=== PATIENT | male | born 1935 | race Caucasian/White ===

== ENCOUNTER → 2016-08-16 | Day surgery (SDC) | payer MEDICARE, OTHER ==
[~2016-08-16] MED LIST: ACAI500C PO; AMLO2.5T PO; ASPI-110 PO; ASPI1TAB69 PO; ASPI81TA82 PO; BUPIVACAINE HCL PF 0.5% 30 ML VIAL ONE; CALTCHW5 PO; CALTTAB PO; CALTTAB2 PO; CENTTAB11 PO; CENTTAB9 PO; COCO1000 PO; DICL1GEL TOPICAL; DICL1GEL7 TOPICAL; DYAZ37.57 PO; FLAX100013 PO; FOLI1 PO; FOLI1TAB4 PO; FOLI400T PO; MAGN200T PO; MAGN400T2 PO; METH2.5T PO; MULT-6 PO; OMPR20CCR PO; OSTETAB4 PO; POTA10CA PO; PRAV10 PO; PRAV40TA2 PO; PRED1 PO; PRIL20CA9 PO; PRIL20TA2 PO; PROPOFOL 200 MG/20 ML AMP IV ONE; TORS20TA PO; TRAM-388 PO; TRAM50TA PO; TRIA37.5 PO; TRIAMCINOLONE ACETONIDE 40 MG/ML VIAL I-ARTICULR ONE; TURM500C3 P-ARTICULR; TURMCAP PO; TYLE325T PO; VOLT1GEL4 TOPICAL; methylPREDNISolone ACETATE 40 MG/ML VIAL I-ARTICULR ONE
--- NOTE | 2016-08-19 10:13 | M6 ---
cc: MARCY THURSTON M.D. DATE: 08/16/2016 DATE OF : 1935 PROCEDURE Fluoroscopically guided injection bilateral sacroiliac joints. History and physical was completed and signed. Consent was signed. Procedure site was marked. Medications were listed and reconciled. Pain score was recorded. Allergies were noted. Time out was taken. Fluoroscopy time was recorded where applicable. Sedation was administered or directed by Dr. Thurston. The patient was given oxygen. The patient was monitored by a registered nurse. Total procedure time was greater than 15 minutes. IV was started, blood pressure cuff, pulse oximeter and EKG were applied. The patient was placed in the prone position on a Khurram table sedated with small amounts of propofol titrated to effect. Vital signs were monitored and remained stable throughout the procedure. Sacral area was prepped with alcohol and 10% Betadine solution and draped with sterile drapes. Fluoroscopy was used shooting from medial to lateral to clearly visualize the posterior joint line of the bilateral sacroiliac joints. Separate sterile 5-inch 22-gauge spinal needles were advanced into these joints under fluoroscopic guidance. There was negative aspiration for blood or any other type of fluid and at each location the patient was given 2 mL of 1/2% of Marcaine 20 mg of Depo-Medrol and 20 mg of Kenalog. Following the procedure the patient was taken to the recovery room with stable vital signs neurologically intact. He will be evaluated immediately and with followup to determine if he has a subjective decrease in his usual pain and a corresponding objective increase his functional capabilities. W. MD JOHN Anthony/shavonne /9:57 AM /10:10 AM
== END | disposition home or self-care (01) ==
LOC: PHSDC 08:14
PROVIDERS: ATTEND Pain Medicine Interventional Pain Medicine
DX: M54.5 Low back pain (principal)
CPT/HCPCS: 99152; G0260; J1030; J3301; 27096

== ENCOUNTER → 2017-05-21 | Outpatient (CLI) | payer MEDICARE, OTHER ==
[~2017-05-21] MED LIST changes: -ACAI500C PO; -ASPI-110 PO; +ASPI1TAB57 PO; -ASPI1TAB69 PO; -ASPI81TA82 PO; -BUPIVACAINE HCL PF 0.5% 30 ML VIAL ONE; -CALTTAB PO; -CALTTAB2 PO; -CENTTAB9 PO; -DICL1GEL TOPICAL; -DICL1GEL7 TOPICAL; -DYAZ37.57 PO; -FLAX100013 PO; -FOLI1 PO; -FOLI1TAB4 PO; -MAGN200T PO; -MAGN400T2 PO; -MULT-6 PO; +NORC5TAB PO; -OMPR20CCR PO; -OSTETAB4 PO; -POTA10CA PO; -PRAV10 PO; -PRIL20CA9 PO; -PROPOFOL 200 MG/20 ML AMP IV ONE; -TORS20TA PO; -TRAM-388 PO; -TRIA37.5 PO; -TRIAMCINOLONE ACETONIDE 40 MG/ML VIAL I-ARTICULR ONE; -TURMCAP PO; +VOLT1GEL16 TOPICAL; -VOLT1GEL4 TOPICAL; -methylPREDNISolone ACETATE 40 MG/ML VIAL I-ARTICULR ONE
[2017-05-21 14:16] LABS: AUTOMATED NEUTROPHIL # 3.1 TH/MM3 (1.8-7.7); BASOPHIL % 0.9 % (0.0-2.0); EOSINOPHIL % 0.8 % (0.0-4.0); HEMATOCRIT 37.8 % (39.0-51.0); LYMPHOCYTE # 0.9 TH/MM3 (1.0-4.8); MEAN CELL VOLUME 93.6 FL (80.0-100.0); MEAN CORPUSCULAR HEMOGLOBIN 32.2 PG (27.0-34.0); MEAN CORPUSCULAR HGB CONC 34.4 % (32.0-36.0); MEAN PLATELET VOLUME 7.4 FL (7.0-11.0); MONO % 11.5 % (0.0-8.0); MONOCYTE # 0.5 TH/MM3 (0-0.9); NEUT % 66.8 % (16.0-70.0); PLATELET COUNT 161 TH/MM3 (150-450); RED BLOOD COUNT 4.03 MIL/MM3 (4.50-5.90); WHITE BLOOD COUNT 4.5 TH/MM3 (4.0-11.0)
--- NOTE | 2017-05-22 18:32 | EKG ---
Date Performed: 05/21/2017 Time Performed: 14:01:20 PTAGE: 81 years EKG: SINUS BRADYCARDIA BORDERLINE ECG NO PREVIOUS TRACING DOCTOR: Christopher Lee Interpretating Date/Time 05/22/2017 18:29:18
== END ==
LOC: PHPRE 12:55
PROVIDERS: ATTEND Pain Medicine Interventional Pain Medicine
DX: Z01.810 Encounter for preprocedural cardiovascular examination (principal); Z01.812 Encounter for preprocedural laboratory examination; M54.5 Low back pain; R94.31 Abnormal electrocardiogram [ECG] [EKG]
CPT/HCPCS: 36415; 85025; 93005

== ENCOUNTER → 2017-05-28 | Day surgery (SDC) | payer MEDICARE, OTHER ==
[~2017-05-28] VITALS: Ht 182.9 cm; Wt 75.0 kg
[~2017-05-28] MED LIST changes: +*MEPERIDINE 25 MG INJ VIAL PERIprocedural Use ONLY ONE; +ACETAMINOPHEN/HYDROcodone 325 MG/5 MG TAB ONE; +BUPIVACAINE HCL PF 0.5% 30 ML VIAL ONE; +BUPIVACAINE/EPINEPHRINE 0.25% 50 ML VIAL ONE; +CHLORHEXIDINE GLUCONATE 2 % 1 PACK (2 CLOTHS) TOPICAL PRN; +IRR ONE; +LACTATED RINGER'S 1000 ML IV PRN; +LIDOCAINE HCL 1% 20 ML VIAL ONE; +LIDOCAINE HCL 1% PF 5 ML SYRINGE OTHER ONE; +METOPROLOL TARTRATE 25 MG TAB PO PRN; +POVIDONE IODINE 5% (ANTISEPSIS KIT) 4 APPLICATIONS EACH NARE PRN; +PROPOFOL 200 MG/20 ML AMP IV ONE; +SODIUM CHLORID 0.9% 500 ML IV PRN; +SODIUM CHLORIDE 0.9% 20 ML VIAL ONE; +SODIUM CHLORIDE 0.9% ONE; +ceFAZolin 1,000 MG/NS 100 ML IV SCH
[2017-05-28 12:54] VITALS: TEMP 97.4
[2017-05-28 14:22] VITALS: BP 158/87; PULSE 50; RESP 16; O2SAT 100
--- NOTE | 2017-05-29 20:36 | MP ---
cc: MARCY SANFORD M.D. Corrected: 05/30/2017 DATE: 05/28/2017 Date of 1935 PROCEDURE Implantation of [employer]tron[employer] quad electrodes x2 for cluneal nerve stimulation. PREPROCEDURE DIAGNOSIS Failed back syndrome with intractable pain. POSTPROCEDURE DIAGNOSIS Failed back syndrome with intractable pain. PROCEDURE NOTE IV was started in the holding area. The patient was given IV antibiotics. He signed his consent form. Surgical site was marked. The patient was taken to the operating room, placed in the prone position. All pressure points were checked and padded and the patient was sedated by anesthesia. Then his lumbar area was prepped with Chloraprep and draped with sterile drapes. The skin in the midline and the lumbar area was infiltrated with 0.25% Marcaine containing epinephrine and then an area in the left flank was also infiltrated. A lumbar incision was made. Hemostasis was obtained with a Bovie. A tunneling device was used to tunnel right and then left Medtronics quad electrode over the cluneal nerves. Then these leads were anchored using 2-0 Ethibond suture, circumferentially tied around an anchoring device. Then an incision was made in the left flank and a subcutaneous pocket was created. The stimulating leads were tunneled to the subcutaneous pocket and the left flank and connected to a distal extension wire by tightening Jean screws. Impedance was checked at the bedside and found to be appropriate in all electrodes and then the connection was covered with a Silastic cover secured at both ends with 2-0 Ethilon suture. Then the redundant wires were coiled in the subcutaneous pocket in the left flank and a final tunnel was made to pass the distal extension lead further laterally in the left flank. Then the lumbar incision and the left flank incision were irrigated with Betadine. Closure took place with 3-0 Monocryl in the subcuticular tissue and 3-0 nylon on the skin. Incisions were covered with sterile adhesive dressings and the patient was taken to the recovery room with stable vital signs neurologically intact. W. MD JOHN Anthony/SKY /12:49 PM /8:20 PM [facility]
== END | disposition home or self-care (01) ==
LOC: PHSDC 09:21
PROVIDERS: ATTEND Pain Medicine Interventional Pain Medicine
DX: M96.1 Postlaminectomy syndrome, not elsewhere classified (principal); M54.5 Low back pain; I10 Essential (primary) hypertension; Z98.1 Arthrodesis status
CPT/HCPCS: 00300; 63650; C1778; J0690; J2175; J7120

== ENCOUNTER → 2017-06-07 | Day surgery (SDC) | payer MEDICARE, OTHER ==
[~2017-06-07] VITALS: Ht 182.9 cm; Wt 74.5 kg
[~2017-06-07] MED LIST changes: -ACETAMINOPHEN/HYDROcodone 325 MG/5 MG TAB ONE; -BUPIVACAINE HCL PF 0.5% 30 ML VIAL ONE; +INSULIN HUMAN REGULAR 1,000 UNITS/10 ML VIAL SQ PRN; -IRR ONE; -LIDOCAINE HCL 1% 20 ML VIAL ONE; +PROPOFOL 200 MG/20 ML AMP ONE; -SODIUM CHLORIDE 0.9% 20 ML VIAL ONE; -SODIUM CHLORIDE 0.9% ONE; +VANCOMYCIN 500 MG/NS 100 ML IV SCH; +ePHEDrine/NS 25 MG/5 ML SYRINGE IV ONE
[2017-06-07 12:52] VITALS: TEMP 97.4
--- NOTE | 2017-06-07 13:26 | MP ---
cc: Alejo Thurston MD Corrected: 06/11/2017 06/07/2017 OPERATION: Implantation of [employer]tron[employer] dual channel rechargeable pulse generator for peripheral nerve stimulation. PREPROCEDURE DIAGNOSIS: Intractable lumbago. POSTPROCEDURE DIAGNOSIS: Intractable lumbago. PROCEDURE NOTE: IV was started in the holding area. The patient was given IV antibiotics. A surgical site was marked. The surgical consent form was signed. The patient was taken to the operating room, placed in the right lateral decubitus position. All pressure points were checked and padded. He was sedated and monitored by anesthesia. His lumbar area and left abdominal area was prepped with ChloraPrep and draped with sterile drapes and Ioban drape. Then the area in the patient's left flank was infiltrated with 0.25% Marcaine containing epinephrine and an area in the abdominal subcostal region was also infiltrated. Then the previous left flank incision was reopened and the distal extension wires were disconnected from the stimulating electrode by loosening Jean screws. The distal extension wire then was discarded. Then an incision was made in the left subcostal area and a subcutaneous pocket was created. A tunneling device was used to tunnel distal extension Y-connector from the abdominal subcutaneous pocket to the left flank and then the distal extension wires were connected to the stimulating electrodes by tightening Jean screws and covering the connection with a silastic cover secured at both ends with 2-0 Ethibond suture. Then the distal extension wire was inserted into a [employer]tronics dual channel rechargeable pulse generator and secured by tightening an Jean screw. Then a dummy plug was placed in the other port and secured by tightening the Jean screw. Then impedance was checked at the bedside and found to be appropriate throughout the entire system. Then each incision was irrigated with Betadine. The pulse generator was placed in the subcutaneous pocket and anchored to the underlying fascia using two 2-0 Ethibond sutures. Then each incision was closed using 3-0 Monocryl in the subcuticular tissue and 3-0 nylon on the skin. The incisions were covered with sterile adhesive dressings. The patient was taken to the recovery room with stable vital signs neurologically intact. MD JOHN Enriquez/KRISTA/ , 12:48 PM , 01:13 PM [place]
[2017-06-07 14:00] VITALS: BP 155/82; PULSE 55; RESP 14; O2SAT 99
== END | disposition home or self-care (01) ==
LOC: PHSDC 09:14
PROVIDERS: ATTEND Pain Medicine Interventional Pain Medicine
DX: M96.1 Postlaminectomy syndrome, not elsewhere classified (principal); M54.5 Low back pain; I10 Essential (primary) hypertension; Z98.1 Arthrodesis status
CPT/HCPCS: 00300; 63685; C1767; J0690; J2175; J3370; J7120